=== PATIENT | female | born 1985 | race Caucasian/White ===

== ENCOUNTER 2017-10-30 14:32 | Emergency (ER) | payer OTHER ==
[~2017-10-30] VITALS: Ht 157.5 cm; Wt 62.2 kg
[~2017-10-30 14:32] MED LIST: BACTRIM,SEPT1 TABLET PO; CLARITIN,ALAVAR10 MG PO; DIFLUCAN150 MG PO; EXCEDRIN MIGRA1 EAC1 PO; FLONASE16 G1 BOTH NARES; KEFLEX500 MG PO; MACROBID100 MG PO; METHADONE HCL40 MG PO; MOTRIN600 MG PO; MUCINEX D ER T1 EACH PO; NAPROSYN500 MG PO; NAPROXEN500 MG PO; PERCOCET 5/31 TABLET PO; PRENACARE TABL1 EACH PO; TYLENOL REGULA325 MG PO; ZOFRAN4 MG PO; ZYRTEC10 M2 PO
[2017-10-30 14:50] LABS: HEMATOCRIT 44.8 % (36.0-46.0); HEMOGLOBIN 15.8 G/DL (11.9-15.5); MCH 32.8 PG (29.0-34.0); MCHC 35.3 G/DL (30.0-36.0); MCV 93.1 FL (83-99); PLATELET COUNT 173 K/uL (156-360); RBC DIS.WIDTH-CV 12.3 % (11.8-14.6); RBC DIS.WIDTH-SD 42.4 % (39-53); RED BLOOD COUNT 4.81 M/uL (3.80-5.20); WHITE BLOOD COUNT 16.7 K/uL (4.1-10.2)
[2017-10-30 15:00] LABS: ALBUMIN 4.4 g/dL (3.2-4.8); CHLORIDE 102 mEq/L (99-109); POTASSIUM 4.1 mEq/L (3.7-5.4); SODIUM 137 mEq/L (136-147)
[2017-10-30 15:02] LABS: GLUCOSE 101 mg/dL (70-99)
[2017-10-30 15:03] LABS: TOTAL PROTEIN 7.8 g/dL (6.4-8.3)
[2017-10-30 15:04] LABS: TOTAL BILIRUBIN 0.6 mg/dL (0.0-1.0)
[2017-10-30 15:06] LABS: ALKALINE PHOSPHATASE 72 IU/L (3-129); CREATININE 0.9 mg/dL (0.6-1.3); GFR ESTIMATE (CALCULATED) > 59 mL/min/
[2017-10-30 15:07] LABS: UREA NITROGEN (BUN) 9 mg/dL (9-23)
[2017-10-30 15:08] LABS: AST (GOT) 17 IU/L (2-34)
[2017-10-30 15:09] LABS: ALT (GPT) 16 IU/L (3-49)
[2017-10-30 15:15] LABS: QUANTITATIVE HCG < 4.0 MIU/ML
[2017-10-30 15:20] LABS: APPEARANCE SL.HAZY ((CLEAR)); BILIRUBIN NEGATIVE; BLOOD MODERATE; COLOR YELLOW ((YELLOW)); GLUCOSE (STRIP) NEGATIVE; KETONES NEGATIVE; LEUKOCYTES NEGATIVE; NITRITE NEGATIVE; PROTEIN (STRIP) NEGATIVE; SPECIFIC GRAVITY 1.023 (1.000-1.030); UROBILINOGEN 0.2 MG/DL (0.2-1.0)
[2017-10-30 15:30] LABS: BACTERIA RARE /HPF; CALCIUM OXALATE CRYSTALS 1+ /HPF; EPITHELIAL CELLS 2+ /HPF; MUCUS TRACE /LPF; UCUL ADDED? NO; WHITE BLOOD CELLS 0-5 /HPF (0-5)
[2017-10-30 16:09] LABS: TROP-I INTERPRETATION NEGATIVE; TROPONIN-I < 0.01 ng/mL (0.0-0.30)
[2017-10-30 16:23] LABS: LIPASE 27 U/L (1.0-51.0)
[2017-10-30] MEDS ORDERED: AUGMENTIN875 MG PO (19:43)
[2017-10-30 20:07] VITALS: BP 138/69
== END 2017-10-30 20:10 | disposition home or self-care (01) ==
LOC: EME 14:32
PROVIDERS: Emergency Medicine
PROC: 3E0234Z Introduction of Serum, Toxoid and Vaccine into Muscle, Percutaneous Approach (ICD-10-PCS; principal; 2017-10-30)
DX: R50.9 Fever, unspecified (principal); S61.230A Puncture wound without foreign body of right index finger without damage to nail, initial encounter; W55.01XA Bitten by cat, initial encounter; Z23 Encounter for immunization; Z20.3 Contact with and (suspected) exposure to rabies; Z29.14 Encounter for prophylactic rabies immune globulin; J45.909 Unspecified asthma, uncomplicated; F17.200 Nicotine dependence, unspecified, uncomplicated
CPT/HCPCS: 71046; 80053; 80076; 81003; 83605; 83690; 84484; 84702; 85027; 87040; 99281; 99285; J1885; J7030

== ENCOUNTER 2017-11-16 18:28 | Emergency (ER) | payer OTHER ==
[~2017-11-16] VITALS: Ht 154.9 cm; Wt 61.9 kg
[~2017-11-16 18:28] MED LIST changes: +AUGMENTIN875 MG PO
[2017-11-16 19:37] LABS: APPEARANCE CLOUDY ((CLEAR)); BILIRUBIN NEGATIVE; BLOOD LARGE; GLUCOSE (STRIP) NEGATIVE; KETONES NEGATIVE; LEUKOCYTES NEGATIVE; NITRITE NEGATIVE; PROTEIN (STRIP) 100; SPECIFIC GRAVITY 1.026 (1.000-1.030)
[2017-11-16 19:38] LABS: COLOR RED ((YELLOW))
[2017-11-16 19:50] LABS: RED BLOOD CELLS TNTC /HPF (0-5); UCUL ADDED? YES
[2017-11-16] MEDS ORDERED: TESSALON PERLE100 MG PO (20:16)
[2017-11-16] MEDS ORDERED: VENTOLIN HFA18 GM IH (20:16)
[2017-11-16] MEDS ORDERED: FLONASE16 G1 BOTH NARES (20:16)
[2017-11-16 20:29] VITALS: BP 113/81
== END 2017-11-16 20:31 | disposition home or self-care (01) ==
LOC: RME 18:28 → EME 18:28 → RME 20:31
PROVIDERS: Nurse Practitioner Family
DX: J02.9 Acute pharyngitis, unspecified (principal); R05 Cough; F17.200 Nicotine dependence, unspecified, uncomplicated; J45.909 Unspecified asthma, uncomplicated
CPT/HCPCS: 71046; 81003; 81025; 87086; 87651 90; 94640; 99281; 99284; J1100